=== PATIENT | female | born 1965 | race Caucasian/White ===

== ENCOUNTER → 2016-11-06 | Outpatient (CLI) | payer MEDICARE, MEDICAID ==
[~2016-11-06] MED LIST: ACET1TAB40 PO; BACTDS PO; CEPH-443 PO; CIPR500T4 PO; CITROMA PO; HYDR-3498 PO; HYDR-3612 PO; HYDR-906 PO; LACTINEX PO; ONDA4TAB35 PO; PANT40TA3 PO; PHEN-538 PO; ZOLP10TA5 PO
[2016-11-06 13:49] LABS: BASOPHILS % 0.2 % (0.0-2.0); EOSINOPHILS % 0.1 % (0.0-7.0); HEMATOCRIT 38.4 % (37.0-47.0); LYMPHOCYTES % 17.2 % (15.0-51.0); MEAN CORPUSCULAR HEMOGLOBIN 31.7 pg (29.0-33.0); MEAN CORPUSCULAR HGB CONC 33.9 g/dl (32.0-37.0); MEAN CORPUSCULAR VOLUME 93.5 fl (82.0-101.0); MEAN PLATELET VOLUME 8.1 fl (7.4-10.4); MONOCYTE # 0.7 10^3/ul (0.3-0.9); MONOCYTES % 12.4 % (0.0-11.0); NEUTROPHIL # 4.2 10^3/ul (1.6-7.5); NEUTROPHILS % 70.1 % (39.0-77.0); PLATELET COUNT 248 10^3/UL (140-440); RED CELL DISTRIBUTION WIDTH 13.9 % (11.5-14.5)
[2016-11-06 13:50] LABS: CONDITION 1
[2016-11-06 21:44] LABS: TRIIODOTHYRONINE 1.2 ng/ml (0.97-1.69)
[2016-11-06 22:34] LABS: THYROID STIMULATING HORMONE 0.957 MIU/L (0.465-4.680)
[2016-11-11 22:01] LABS: FREE TESTOSTERONE 0.4 pg/mL (0.1-6.4)
== END | disposition home or self-care (01) ==
LOC: LAB 10:21
PROVIDERS: ATTEND Dermatology
DX: L65.9 Nonscarring hair loss, unspecified (principal)
CPT/HCPCS: 82626; 84403; 84436; 84443; 84480; 85025

== ENCOUNTER 2016-12-18 20:13 | Emergency (ER) | payer MEDICARE, MEDICAID ==
[~2016-12-18] VITALS: Ht 152.4 cm; Wt 56.0 kg
[2016-12-18 20:26] VITALS: Ht 152.4 cm; Wt 56.0 kg
[2016-12-18] MEDS ORDERED: PIPER-TAZO 3.375 GM IV (PMX) 100 ML IVPB STA (21:50)
[2016-12-18] MEDS ORDERED: SOD CHLORIDE 0.9% 1,000 ML IV STA (21:50)
[2016-12-18] MEDS ORDERED: HYDROmorphONE 1 MG/ML SYG IV STA (21:50)
[2016-12-18] MEDS ORDERED: ONDANSETRON 4 MG INJ IV STA (21:50)
[2016-12-18 22:34] LABS: BASOPHILS % 0.3 % (0.0-2.0); EOSINOPHILS % 0.3 % (0.0-7.0); HEMATOCRIT 43.9 % (37.0-47.0); HEMOGLOBIN 14.8 g/dl (12.0-16.0); LYMPHOCYTES # 1.4 10^3/ul (0.8-2.9); LYMPHOCYTES % 14.7 % (15.0-51.0); MEAN CORPUSCULAR HEMOGLOBIN 30.7 pg (29.0-33.0); MEAN CORPUSCULAR HGB CONC 33.8 g/dl (32.0-37.0); MEAN CORPUSCULAR VOLUME 90.9 fl (82.0-101.0); MEAN PLATELET VOLUME 9.3 fl (7.4-10.4); MONOCYTES % 10.2 % (0.0-11.0); NEUTROPHIL # 7.3 10^3/ul (1.6-7.5); NEUTROPHILS % 74.5 % (39.0-77.0); PLATELET COUNT 267 10^3/UL (140-440); RED BLOOD COUNT 4.83 10^6/ul (4.20-5.40); RED CELL DISTRIBUTION WIDTH 12.9 % (11.5-14.5); UNCORRECTED WBC 9.9 10^3/ul (4.8-10.8); WHITE BLOOD COUNT 9.9 10^3/ul (4.8-10.8)
[2016-12-18 22:36] LABS: ADD UMIC NO; CONDITION 1; URINE BILIRUBIN (Dip) NEGATIVE (NEGATIVE); URINE BLOOD (Dip) NEGATIVE (NEGATIVE); URINE COLOR LT. YELLOW (YELLOW); URINE GLUCOSE (Dip) NEGATIVE (NEGATIVE); URINE KETONES (Dip) NEGATIVE (NEGATIVE); URINE LEUKOCYTE ESTERASE (Dip) NEGATIVE (NEGATIVE); URINE NITRITE (Dip) NEGATIVE (NEGATIVE); URINE TOTAL PROTEIN (Dip) NEGATIVE (NEGATIVE); URINE UROBILINOGEN (Dip) 0.2 E.U./dL (0.1-1.0)
[2016-12-18 22:44] LABS: ALBUMIN 4.5 g/dl (3.3-4.9)
[2016-12-18 22:45] LABS: POTASSIUM 3.7 mmol/L (3.5-5.1)
[2016-12-18 22:47] LABS: ALBUMIN/GLOBULIN RATIO 1.32; BILIRUBIN,INDIRECT 0.1 mg/dl (0-1.1); BILIRUBIN,TOTAL 0.1 mg/dl (0.2-1.3); CREATININE 0.52 mg/dl (0.44-1.00); TOTAL PROTEIN 7.9 g/dl (6.1-8.1)
[2016-12-18 22:48] LABS: CALCIUM 9.3 mg/dl (8.4-10.2)
--- NOTE | 2016-12-19 00:41 | RADRPT ---
PROCEDURE: CT abdomen and pelvis without contrast. CLINICAL INDICATION: Flank pain TECHNIQUE: CT scan of the abdomen and pelvis without contrast was performed. Sagittal and coronal reformatted images were obtained from the axial source images. CTDI = 8.62 mGy; DLP = 464.46 mGy-cm COMPARISON: CT 09/26/2016 FINDINGS: Visualized lower thorax: The lung bases are clear. There is no evidence for pleural effusion. Liver, gallbladder, pancreas and spleen: Borderline hepatomegaly of 19 cm is again noted with prese rved attenuation and contour. There is no evidence for a liver mass or ductal dilatation. The gall bladder is unremarkable. No common bile duct abnormality is demonstrated. The pancreas is unremark able. The spleen is normal in size. Adrenal glands and genitourinary system: The adrenal glands are normal bilaterally. The kidneys are normal and size, contour and attenuation with no evidence for masses, calculi or hydronephrosis. T he ureters are unremarkable. No urinary bladder abnormality is demonstrated. The uterus is unremar kable. An approximately 11 mm left ovarian/adnexal cyst is similar to the previous examination. Th ere is no right ovarian or adnexal abnormality. No free fluid is seen in the cul-de-sac. Gastrointestinal system: The stomach is normal in caliber with no abnormality of significance. The small bowel is normal in caliber with no ileus, obstruction or wall thickening. The appendix and s urrounding fat are within the limits of normal. The colon shows no evidence for wall thickening or acute abnormality. A moderate amount of fecal debris throughout the colon raises concern for consti pation. Peritoneum, retroperitoneum, lymph nodes and vessels: The abdominal aorta is normal in caliber. The re is no evidence for atherosclerotic calcification. The inferior vena cava is unremarkable. There is no evidence for adenopathy or mass. There is no ascites. Osseous structures and musculoskeletal findings: There is no fracture, lytic or blastic lesion. No muscular abnormality or soft tissue pathology is present. RPTAT:HJJR IMPRESSION: 1. No evidence of urinary tract calculi, hydronephrosis or finding to explain the patient's provide d history of flank pain. 2. Constipation pattern. 3. Small left ovarian/adnexal cyst not significantly changed from 09/26/2016. 4. Borderline hepatomegaly with preserved liver contour and attenuation. Wojciech Coe, Physician Date Time Electronically viewed and signed by Wojciech Coe, Physician on 12/19/2016 00:41 JR/
[2016-12-19] MEDS ORDERED: HYDR-902 PO (01:19)
[2016-12-19] MEDS ORDERED: METH-70 PO (01:19)
[2016-12-19] MEDS ORDERED: ONDA4TAB14 PO (01:19)
[2016-12-19] MEDS ORDERED: ONDANSETRON 4 MG INJ IV STA (01:20)
[2016-12-19] MEDS ORDERED: HYDROmorphONE 1 MG/ML SYG IV STA (01:20)
--- NOTE | 2016-12-19 01:24 | ERD ---
ER Documentation Chief Complaint Date/Time DATE: 12/19/16 TIME: 01:22 Chief Complaint Dysuria, UTI 2 weeks ago HPI This a 51-year-old female complains of some right flank pain and nausea vomiting today. She says she has had the flank pain for 2 weeks. The pain is described as sharp and worse with movement better with rest. The patient feels she has a UTI possibly a kidney infection. The patient states that she has had a history of antibiotic resistant UTI. Occasional dysuria but no frequency no headache no abdominal pain no diarrhea no blood in the urine. ROS All systems reviewed and are negative except as per history of present illness. Medications Home Meds Active Scripts Methocarbamol* (Robaxin*) 750 Mg Tablet, 750 MG PO TID, #20 TAB Prov:FRANCESCA URIAS DO 12/19/16 Hydrocodone/Acetaminophen ([place] 10-325 Tablet) 1 Each Tablet, 1 TAB PO Q6H Y for PAIN, #20 TAB Prov:FRANCESCA URIAS DO 12/19/16 Ondansetron (Ondansetron Odt) 4 Mg Tab.rapdis, 4 MG PO Q6H Y for NAUSEA AND/OR VOMITING, #10 TAB Prov:JUN URIASSTBURTS Nuvia DO 12/19/16 Sulfamethoxazole-Trimethoprim* (Bactrim* DS) 800-160 Mg Tab, 1 TAB PO BID for 5 Days, TAB Prov:KATHERIN DE LUNA PA-C 10/24/16 Hydrocodone/Acetaminophen ([place] 5-325 Tablet) 1 Each Tablet, 1 TAB PO Q6H Y for PAIN, #7 TAB Prov:ZANDER POLANCO PA-C 09/26/16 Ciprofloxacin Hcl* (Ciprofloxacin Hcl*) 500 Mg Tablet, 500 MG PO BID for 10 Days , TAB Prov:ZANDER POLANCO PA-C 09/26/16 Phenazopyridine Hcl* (Pyridium*) 200 Mg Tab, 200 MG PO TID Y for URINARY PAIN, # 6 TAB Prov:KUSH VITALE MD 08/12/16 Cephalexin* (Keflex*) 500 Mg Capsule, 500 MG PO QID for 7 Days, CAP Prov:KUSH VITALE MD 08/12/16 Magnesium Citrate* (Citroma*) 300 Ml Soln, 150 ML PO BID, #1 BOTTLE Prov:CHANTELLE VELÁSQUEZErica APRON CLEANER 06/22/16 Ondansetron Hcl* (Zofran* ODT) 4 mg -ODT Tab.disper, 4 MG PO Q8 Y for NAUSEA AND /OR VOMITING, #30 TAB Prov:ALIREZA SUTHERLAND APRON CLEANER 10/15/15 Hydrocodone Bit-Acetaminophen* ([place]*) 5-325 Mg Tab, 1 TAB PO Q6 Y for PAIN, # 20 TAB Prov:ALIREZA SUTHERLAND APRON CLE[employer]ER 10/15/15 Acetaminophen-Codeine* (Acetaminophen-Cod #3*) 300-30 Mg Tab, 1 TAB PO Q4H Y for PAIN, #20 TAB Prov:DESMOND GAYLE [employer]ON CLEANER 04/18/15 Ondansetron Hcl* (Zofran* ODT) 4 mg -ODT Tab.disper, 4 MG PO Q6 Y for NAUSEA AND /OR VOMITING, #5 TAB Prov:MILTON GARCIA 04/11/15 Reported Medications Lactobacillus Acidophilus* (Lactinex*) 1 Tab Chew, 1 TAB PO DAILY, TAB 07/26/14 Zolpidem Tartrate* (Zolpidem Tartrate*) 10 Mg Tablet, 10 MG PO HS for INSOMNIA, TAB 07/26/14 Pantoprazole* (Protonix*) 40 Mg Tablet.dr, 40 MG PO BID, TAB 07/26/14 Hydrocodone Bit-Acetaminophen* ([place]*) 10-325 Tablet, 1 TAB PO Q6 Y for PAIN, TAB 07/09/14 Allergies Allergies: Coded Allergies: clindamycin (Verified Allergy, Intermediate, 12/18/16) PMhx/Soc History of Surgery: Yes (right hip, right shoulder, coccyx) Anesthesia Reaction: No Hx Neurological Disorder: No Hx Respiratory Disorders: No Hx Cardiac Disorders: Yes (Hyperlipidemia ) Hx Psychiatric Problems: No Hx Miscellaneous Medical Probl: Yes (uti) Hx Alcohol Use: No Hx Substance Use: No Hx Tobacco Use: No Smoking Status: Never smoker FmHx Family History: No coronary disease Physical Exam Vitals Vital Signs Date Time Temp Pulse Resp B/P Pulse Ox O2 Delivery O2 Flow Rate FiO2 12/18/16 20:26 95 18 149/81 98 Physical Exam Const: Well-developed, well-nourished Head: Atraumatic, normocephalic Eyes: Normal Conjunctiva, PERRLA, EOMI, normal sclera, no nystagmus ENT: Normal External Ears, Nose and Mouth, moist mucus membranes. Neck: Full range of motion. No meningismus, no lymphadenopathy. Resp: Clear to auscultation bilaterally, no wheezing, rhonchi, rales Cardio: Regular rate and rhythm, no murmurs, S1 S2 present Abd: Soft, non tender x 4, non distended. Normal bowel sounds, no guarding or rebound, no pulsitile abdominal masses or bruits Skin: No petechiae or rashes, no ecchymosis , no maculopapular rash Back: No midline tenderness positive right flank tenderness mild to moderate Ext: No cyanosis, or edema, FROM x 4, normal inspection, neurovascularly intact x 4 Neur: Awake and alert, STR 5/5 x 4, sensation intact x 4, no focal findings, cerebellum intact Psych: Normal Mood and Affect Result Diagram: 12/18/16220712/18/162207 Results 24 hrs Laboratory Tests Test 12/18/16 22:08 Alanine Aminotransferase (ALT/SGPT) 17IU/L Albumin 4.5g/dl Albumin/Globulin Ratio 1.32 Alkaline Phosphatase 110IU/L Anion Gap 17 Aspartate Amino Transf (AST/SGOT) 25IU/L Basophils # 0.010^3/ul Basophils % 0.3% Blood Urea Nitrogen 7mg/dl Calcium Level 9.3mg/dl Carbon Dioxide Level 27mmol/L Chloride Level 102mmol/L Creatinine 0.52mg/dl Direct Bilirubin 0.00mg/dl Eosinophils # 0.010^3/ul Eosinophils % 0.3% Globulin 3.40g/dl Glucose Level 130mg/dl Hematocrit 43.9% Hemoglobin 14.8g/dl Indirect Bilirubin 0.1mg/dl Lymphocytes # 1.410^3/ul Lymphocytes % 14.7% Mean Corpuscular Hemoglobin 30.7pg Mean Corpuscular Hemoglobin Concent 33.8g/dl Mean Corpuscular Volume 90.9fl Mean Platelet Volume 9.3fl Monocytes # 1.010^3/ul Monocytes % 10.2% Neutrophils # 7.310^3/ul Neutrophils % 74.5% Nucleated Red Blood Cells # 0.010^3/ul Nucleated Red Blood Cells % 0.0/100WBC Platelet Count 52752^3/UL Potassium Level 3.7mmol/L Red Blood Count 4.8310^6/ul Red Cell Distribution Width 12.9% Sodium Level 142mmol/L Total Bilirubin 0.1mg/dl Total Protein 7.9g/dl Urine Bilirubin NEGATIVE Urine Clarity CLEAR Urine Color LT. YELLOW Urine Glucose NEGATIVE% Urine Hemoglobin NEGATIVE Urine Ketones NEGATIVE Urine Leukocyte Esterase NEGATIVE Urine Nitrite NEGATIVE Urine Specific Kirby 1.010 Urine Total Protein NEGATIVE Urine Urobilinogen 0.2 E.U./dL Urine pH 6.0 White Blood Count 9.910^3/ul Current Medications Medications (Trade) Dose Ordered Sig/Rahul Route PRN Reason Start Time Stop Time Status Last Admin Dose Admin Sodium Chloride (NS) 1,000 ml @ 1,000 mls/hr Q1H STAT IV 12/18/16 21:50 12/18/16 22:49 DC 12/18/16 22:37 Hydromorphone HCl (Dilaudid) 1 mg ONCE STAT IV 12/18/16 21:50 12/18/16 21:51 DC 12/18/16 22:37 Ondansetron HCl 4 mg 4 mg ONCE STAT IV 12/18/16 21:50 12/18/16 21:51 DC 12/18/16 22:37 Piperacillin Sod/ Tazobactam Sod (Zosyn 3.375gm/ 100 ml (Pmx)) 100 ml @ 200 mls/hr ONCE STAT IVPB 12/18/16 21:50 12/18/16 22:19 DC 12/18/16 23:00 Procedures/MDM PROCEDURE: CT abdomen and pelvis without contrast. CLINICAL INDICATION: Flank pain TECHNIQUE: CT scan of the abdomen and pelvis without contrast was performed. Sagittal and coronal reformatted images were obtained from the axial source images. CTDI = 8.62 mGy; DLP = 464.46 mGy-cm COMPARISON: CT 09/26/2016 FINDINGS: Visualized lower thorax: The lung bases are clear. There is no evidence for pleural effusion. Liver, gallbladder, pancreas and spleen: Borderline hepatomegaly of 19 cm is again noted with preserved attenuation and contour. There is no evidence for a liver mass or ductal dilatation. The gallbladder is unremarkable. No common bile duct abnormality is demonstrated. The pancreas is unremarkable. The spleen is normal in size. Adrenal glands and genitourinary system: The adrenal glands are normal bilaterally. The kidneys are normal and size, contour and attenuation with no evidence for masses, calculi or hydronephrosis. The ureters are unremarkable. No urinary bladder abnormality is demonstrated. The uterus is unremarkable. An approximately 11 mm left ovarian/adnexal cyst is similar to the previous examination. There is no right ovarian or adnexal abnormality. No free fluid is seen in the cul-de-sac. Gastrointestinal system: The stomach is normal in caliber with no abnormality of significance. The small bowel is normal in caliber with no ileus, obstruction or wall thickening. The appendix and surrounding fat are within the limits of normal. The colon shows no evidence for wall thickening or acute abnormality. A moderate amount of fecal debris throughout the colon raises concern for constipation. Peritoneum, retroperitoneum, lymph nodes and vessels: The abdominal aorta is normal in caliber. There is no evidence for atherosclerotic calcification. The inferior vena cava is unremarkable. There is no evidence for adenopathy or mass. There is no ascites. Osseous structures and musculoskeletal findings: There is no fracture, lytic or blastic lesion. No muscular abnormality or soft tissue pathology is present. RPTAT:HJJR IMPRESSION: 1. No evidence of urinary tract calculi, hydronephrosis or finding to explain the patient's provided history of flank pain. 2. Constipation pattern. 3. Small left ovarian/adnexal cyst not significantly changed from 09/26/2016. 4. Borderline hepatomegaly with preserved liver contour and attenuation. Physician Angelo Date Time Electronically viewed and signed by Physician Angelo on 12/19/2016 00:41 JR/ CC: FRANCESCA URIAS DO Patient has no UTI, noticed signs of any intra-abdominal pathology. Normal white blood count normal renal function. I feel her pain is musculoskeletal, she may have a viral illness with vomiting. She is feeling much better will discharge home Departure Diagnosis: Primary Impression: Vomiting Vomiting type: unspecified Vomiting Intractability: non-intractable Nausea presence: with nausea Qualified Code: R11.2 - Non-intractable vomiting with nausea, unspecified vomiting type Additional Impression: Flank pain Condition: Stable Patient Instructions: Flank Pain, Uncertain Cause, Vomiting (6Y-Adult) Referrals: ELICIA SHERIDAN MD (PCP) FRANCESCA URIAS DO Dec 19, 2016 01:24
[2016-12-19 02:19] VITALS: BP 97/54; PULSE 77; RESP 16; TEMP 98.2
== END 2016-12-19 02:19 | disposition home or self-care (01) ==
LOC: FTE 20:13
DX: R11.2 Nausea with vomiting, unspecified (principal); R10.9 Unspecified abdominal pain
CPT/HCPCS: 36415; 74176; 80053; 81003; 85025; 87040; 87086; 96374; 96375; 96376; 99285; J1170; J2405; J2543; J7030

== ENCOUNTER 2016-12-26 12:49 | Emergency (ER) | payer MEDICARE, MEDICAID ==
[~2016-12-26] VITALS: Ht 157.5 cm; Wt 55.0 kg
[~2016-12-26 12:49] MED LIST changes: +HYDR-902 PO; +METH-70 PO; +ONDA4TAB14 PO
[2016-12-26 12:59] VITALS: Ht 157.5 cm; Wt 55.0 kg
--- NOTE | 2016-12-26 14:33 | ERD ---
ER Documentation Chief Complaint Date/Time DATE: 12/26/16 TIME: 14:29 Chief Complaint CONSTIPATION X 9 DAYS , ABD PAIN WITH NAUSEA HPI This 51-year-old female who presents to the emergency department today complaining of constipation for the past 9 days. Patient states she was here a week ago for flank pain and was told she was constipated that time. Patient states she has tried B's umbilical and an enema but the enema did not go in all the way. States she has some nausea and has been taking Zofran. States that she has been taking Percocet since 2011 and recently started on morphine for back pain and back fusion. Denies any fever or chills. ROS All systems reviewed and are negative except as per history of present illness. Medications Home Meds Active Scripts Docusate Sodium* (Colace*) 100 Mg Capsule, 100 MG PO DAILY, #30 CAP Prov:PATSY QUIÑONES PA-C 12/26/16 Magnesium Citrate* (Magnesium Citrate*) 296 Ml Solution, 296 ML PO ONCE, #1 BOTTLE Prov:PATSY QUIÑONES PA-C 12/26/16 Polyethylene Glycol* (Miralax*) 17 Gm Powd.pack, 17 GM PO DAILY, #15 Prov:PATSY QUIÑONES PA-C 12/26/16 Methocarbamol* (Robaxin*) 750 Mg Tablet, 750 MG PO TID, #20 TAB Prov:FRANCESCA URIAS DO 12/19/16 Hydrocodone/Acetaminophen ([place] 10-325 Tablet) 1 Each Tablet, 1 TAB PO Q6H Y for PAIN, #20 TAB Prov:FRANCESCA URIAS DO 12/19/16 Ondansetron (Ondansetron Odt) 4 Mg Tab.rapdis, 4 MG PO Q6H Y for NAUSEA AND/OR VOMITING, #10 TAB Prov:FRANCESCA URIAS DO 12/19/16 Sulfamethoxazole-Trimethoprim* (Bactrim* DS) 800-160 Mg Tab, 1 TAB PO BID for 5 Days, TAB Prov:KATHERIN DE LUNA PA-C 10/24/16 Hydrocodone/Acetaminophen ([place] 5-325 Tablet) 1 Each Tablet, 1 TAB PO Q6H Y for PAIN, #7 TAB Prov:ZANDER POLANCO PA-C 09/26/16 Ciprofloxacin Hcl* (Ciprofloxacin Hcl*) 500 Mg Tablet, 500 MG PO BID for 10 Days , TAB Prov:ZANDER POLANCO PA-C 09/26/16 Phenazopyridine Hcl* (Pyridium*) 200 Mg Tab, 200 MG PO TID Y for URINARY PAIN, # 6 TAB Prov:KUSH VITALE MD 08/12/16 Cephalexin* (Keflex*) 500 Mg Capsule, 500 MG PO QID for 7 Days, CAP Prov:KUSH VITALE MD 08/12/16 Magnesium Citrate* (Citroma*) 300 Ml Soln, 150 ML PO BID, #1 BOTTLE Prov:CHANTELLE VELÁSQUEZ NP 06/22/16 Ondansetron Hcl* (Zofran* ODT) 4 mg -ODT Tab.disper, 4 MG PO Q8 Y for NAUSEA AND /OR VOMITING, #30 TAB Prov:ALIREZA SUTHERLAND NP 10/15/15 Hydrocodone Bit-Acetaminophen* ([place]*) 5-325 Mg Tab, 1 TAB PO Q6 Y for PAIN, # 20 TAB Prov:ALIREZA SUTHERLAND NP 10/15/15 Acetaminophen-Codeine* (Acetaminophen-Cod #3*) 300-30 Mg Tab, 1 TAB PO Q4H Y for PAIN, #20 TAB Prov:DESMOND GAYLE NP 04/18/15 Ondansetron Hcl* (Zofran* ODT) 4 mg -ODT Tab.disper, 4 MG PO Q6 Y for NAUSEA AND /OR VOMITING, #5 TAB Prov:MILTON GARCIA 04/11/15 Reported Medications Lactobacillus Acidophilus* (Lactinex*) 1 Tab Chew, 1 TAB PO DAILY, TAB 07/26/14 Zolpidem Tartrate* (Zolpidem Tartrate*) 10 Mg Tablet, 10 MG PO HS for INSOMNIA, TAB 07/26/14 Pantoprazole* (Protonix*) 40 Mg Tablet.dr, 40 MG PO BID, TAB 07/26/14 Hydrocodone Bit-Acetaminophen* ([place]*) 10-325 Tablet, 1 TAB PO Q6 Y for PAIN, TAB 07/09/14 Allergies Allergies: Coded Allergies: clindamycin (Verified Allergy, Intermediate, 12/18/16) PMhx/Soc History of Surgery: Yes (right hip, right shoulder, coccyx) Anesthesia Reaction: No Hx Neurological Disorder: No Hx Respiratory Disorders: No Hx Cardiac Disorders: Yes (Hyperlipidemia ) Hx Psychiatric Problems: No Hx Miscellaneous Medical Probl: Yes (uti) Hx Alcohol Use: No Hx Substance Use: No Hx Tobacco Use: No Physical Exam Vitals Vital Signs Date Time Temp Pulse Resp B/P Pulse Ox O2 Delivery O2 Flow Rate FiO2 12/26/16 12:59 98.1 92 18 134/74 100 Physical Exam Const: NAD Head: Atraumatic Eyes: Normal Conjunctiva ENT: Normal External Ears, Nose and Mouth. Neck: Full range of motion..~ No meningismus. Resp: Clear to auscultation bilaterally Cardio: Regular rate and rhythm, no murmurs Abd: Soft, mild suprapubic tenderness non distended. Normal bowel sounds. No right lower quadrant pain. No tenderness to McBurney's. No left lower quadrant pain. Skin: No petechiae or rashes Neur: Awake and alert Psych: Normal Mood and Affect Procedures/MDM This a 51-year-old female who presents to the emergency department today complaining of constipation for the past 9 days. 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 Patient has been taking Percocet since 2011 and is currently started taking morphine 1 week ago. Patient was here for a flank pain on December 18, 2016, approximately 8 days ago and had a CT scan at that time. Her CT was essentially negative with the exception of a constipation pattern I do not feel the patient requires another CT at this time. I discussed the patient with Dr. Vitale, and the agreement was made to order a KUB to rule out obstruction. KUB shows large amount of formed stool throughout the colon suggesting constipation. There are no dilated loops of small bowel. There is no evidence of obstruction. His symptoms at this time is consistent with constipation likely secondary to her narcotic use. Patient will be given a prescription for MiraLAX, Colace and mag citrate. At this time the patient is stable for discharge and outpatient management. Patient should follow up with their PCP in the next 1-2 days. They may return to the emergency department sooner for any persistent or worsening of symptoms. Patient understood and agreed with the plan. Discussed the patient with and he is in agreement with the plan. Departure Diagnosis: Primary Impression: Constipation Constipation type: drug induced constipation Qualified Code: K59.03 - Drug- induced constipation Condition: Fair PATSY QUIÑONES PA-C Dec 26, 2016 14:33
--- NOTE | 2016-12-26 15:38 | RADRPT ---
PROCEDURE: XR Abdomen 1 View. CLINICAL INDICATION: Abdominal pain, constipation TECHNIQUE: AP abdomen x-ray. COMPARISON: None. FINDINGS: Large amount of formed stool is identified throughout the colon. No dilated loops of small bowel ar e observed. No organomegaly is identified. A few phleboliths are noted in the pelvis. The osseous s tructures are intact. IMPRESSION: Large amount of formed stool throughout the colon suggesting constipation. If further characterization of the abdomen is needed CT should be considered. RPTAT: AA .José Antonio Lerma MD, MD Date Time Electronically viewed and signed by .José Antonio Lerma MD, on 12/26/2016 15:38 .P/
[2016-12-26] MEDS ORDERED: POLY17PO6 PO (15:43)
[2016-12-26] MEDS ORDERED: MAGN296S40 PO (15:44)
[2016-12-26] MEDS ORDERED: DOCU-144 PO (15:49)
[2016-12-26 16:07] VITALS: BP 119/65; PULSE 77; RESP 16; TEMP 98.2
== END 2016-12-26 16:08 | disposition home or self-care (01) ==
LOC: FTE 12:49
DX: K59.00 Constipation, unspecified (principal)
CPT/HCPCS: 74000

== ENCOUNTER 2017-02-17 12:18 | Emergency (ER) | payer MEDICARE, BC, MEDICAID ==
[~2017-02-17] VITALS: Ht 160 cm; Wt 56.5 kg
[~2017-02-17 12:18] MED LIST changes: +DOCU-144 PO; +MAGN296S40 PO; +POLY17PO6 PO
[2017-02-17 12:29] VITALS: Ht 160 cm; Wt 56.5 kg
--- NOTE | 2017-02-17 12:50 | ERA ---
ER Documentation Chief Complaint Date/Time DATE: 02/17/17 TIME: 12:48 Chief Complaint PRODDUCTIVE COUGH X 2 DAYS,SOB HPI Patient is a 51-year-old female presenting for 2 days of fever and what cough. Patient denies any significant mucus production. Patient has taken Tylenol and ibuprofen on and off to control the fever with moderate relief. Patient states her cough is more noticeable at night and keeps her up. Patient also reports general malaise. Patient denies any headache changes in vision, changes in hearing, dysgeusia, dysarthria, difficulty breathing, abdominal pain, nausea, difficulty urinating, hematuria, dysuria, or constipation/diarrhea. Patient denies medical conditions. No known sick contacts. ROS All systems reviewed and are negative except as per history of present illness. Medications Home Meds Active Scripts Docusate Sodium* (Colace*) 100 Mg Capsule, 100 MG PO DAILY, #30 CAP Prov:PATSY QUIÑONES PA-C 12/26/16 Magnesium Citrate* (Magnesium Citrate*) 296 Ml Solution, 296 ML PO ONCE, #1 BOTTLE Prov:PATSY QUIÑONES PA-C 12/26/16 Polyethylene Glycol* (Miralax*) 17 Gm Powd.pack, 17 GM PO DAILY, #15 Prov:PATSY QUIÑONES PA-C 12/26/16 Methocarbamol* (Robaxin*) 750 Mg Tablet, 750 MG PO TID, #20 TAB Prov:FRANCESCA URIAS DO 12/19/16 Hydrocodone/Acetaminophen ([place] 10-325 Tablet) 1 Each Tablet, 1 TAB PO Q6H Y for PAIN, #20 TAB Prov:FRANCESCA URIAS DO 12/19/16 Ondansetron (Ondansetron Odt) 4 Mg Tab.rapdis, 4 MG PO Q6H Y for NAUSEA AND/OR VOMITING, #10 TAB Prov:FRANCESCA URIAS DO 12/19/16 Sulfamethoxazole-Trimethoprim* (Bactrim* DS) 800-160 Mg Tab, 1 TAB PO BID for 5 Days, TAB Prov:KATHERIN DE LUNA PA-C 10/24/16 Hydrocodone/Acetaminophen ([place] 5-325 Tablet) 1 Each Tablet, 1 TAB PO Q6H Y for PAIN, #7 TAB Prov:ZANDER POLANCO PA-C 09/26/16 Ciprofloxacin Hcl* (Ciprofloxacin Hcl*) 500 Mg Tablet, 500 MG PO BID for 10 Days , TAB Prov:ZANDER POLANCO PA-C 09/26/16 Phenazopyridine Hcl* (Pyridium*) 200 Mg Tab, 200 MG PO TID Y for URINARY PAIN, # 6 TAB Prov:KUSH VITALE MD 08/12/16 Cephalexin* (Keflex*) 500 Mg Capsule, 500 MG PO QID for 7 Days, CAP Prov:KUSH VITALE MD 08/12/16 Magnesium Citrate* (Citroma*) 300 Ml Soln, 150 ML PO BID, #1 BOTTLE Prov:CHANTELLE VELÁSQUEZ NP 06/22/16 Ondansetron Hcl* (Zofran* ODT) 4 mg -ODT Tab.disper, 4 MG PO Q8 Y for NAUSEA AND /OR VOMITING, #30 TAB Prov:ALIREZA SUTHERLAND NP 10/15/15 Hydrocodone Bit-Acetaminophen* ([place]*) 5-325 Mg Tab, 1 TAB PO Q6 Y for PAIN, # 20 TAB Prov:ALIREZA SUTHERLAND NP 10/15/15 Acetaminophen-Codeine* (Acetaminophen-Cod #3*) 300-30 Mg Tab, 1 TAB PO Q4H Y for PAIN, #20 TAB Prov:DESMOND GAYLE NP 04/18/15 Ondansetron Hcl* (Zofran* ODT) 4 mg -ODT Tab.disper, 4 MG PO Q6 Y for NAUSEA AND /OR VOMITING, #5 TAB Prov:MILTON GARCIA 04/11/15 Reported Medications Lactobacillus Acidophilus* (Lactinex*) 1 Tab Chew, 1 TAB PO DAILY, TAB 07/26/14 Zolpidem Tartrate* (Zolpidem Tartrate*) 10 Mg Tablet, 10 MG PO HS for INSOMNIA, TAB 07/26/14 Pantoprazole* (Protonix*) 40 Mg Tablet.dr, 40 MG PO BID, TAB 07/26/14 Hydrocodone Bit-Acetaminophen* ([place]*) 10-325 Tablet, 1 TAB PO Q6 Y for PAIN, TAB 07/09/14 Allergies Allergies: Coded Allergies: clindamycin (Verified Allergy, Intermediate, 12/18/16) PMhx/Soc History of Surgery: Yes (right hip, right shoulder, coccyx) Anesthesia Reaction: No Hx Neurological Disorder: No Hx Respiratory Disorders: No Hx Cardiac Disorders: Yes (Hyperlipidemia ) Hx Psychiatric Problems: No Hx Miscellaneous Medical Probl: Yes (uti) Hx Alcohol Use: No Hx Substance Use: No Hx Tobacco Use: No Smoking Status: Never smoker Physical Exam Vitals Vital Signs Date Time Temp Pulse Resp B/P Pulse Ox O2 Delivery O2 Flow Rate FiO2 02/17/17 12:29 98.1 89 18 127/85 98 Physical Exam Const: Healthy appearing 51-year-old female in no acute distress Head: Atraumatic Eyes: Normal Conjunctiva ENT: Normal External Ears, Nose and Mouth. Neck: Full range of motion..~ No meningismus. Resp: Clear to auscultation bilaterally. Rales and rhonchi heard bilaterally without wheezing. More predominate in the mid lung dominguez. Dullness to percussion in the Cardio: Regular rate and rhythm, no murmurs Abd: Soft, non tender, non distended. Normal bowel sounds no McBurney's point tenderness. Skin: No petechiae or rashes Back: No midline or flank tenderness Ext: No cyanosis, or edema Neur: Awake and alert Psych: Normal Mood and Affect Departure Condition: Stable Additional Instructions: Follow up with your PCP within the next 1-3 days for a more thorough evaluation and a possible referral to a specialist. Return the the emergency department immediately if symptoms worsen or change. If you have any questions regarding medications, ask your pharmacist or us before you leave. If any adverse reactions occur while taking your medications, discontinue the treatment and return to the emergency department immediately. Take your medications as directed, and complete the entire course of treatment. DELMIS JOSEPH PA-C Feb 17, 2017 12:50
--- NOTE | 2017-02-17 13:48 | RADRPT ---
PROCEDURE: XR Chest. CLINICAL INDICATION: Cough. TECHNIQUE: PA and lateral chest x-ray. COMPARISON: 07/05/2016 FINDINGS: The lungs are clear. No focal opacification is seen. The cardiomediastinal silhouette is unremarka ble. There is no pneumothorax or pleural effusion. The osseous structures are unremarkable. IMPRESSION: No acute cardiopulmonary disease . RPTAT: QQ .Elias Espinosa MD, MD Date Time Electronically viewed and signed by .Elias Espinosa MD, on 02/17/2017 13:47 .A/
[2017-02-17] MEDS ORDERED: BENZ100C70 PO (13:58)
== END 2017-02-17 14:06 | disposition home or self-care (01) ==
LOC: FTE 12:18
DX: R05 Cough (principal); R50.9 Fever, unspecified
CPT/HCPCS: 71020

== ENCOUNTER 2017-05-19 12:40 | Emergency (ER) | payer MEDICARE, BC, MEDICAID ==
[~2017-05-19] VITALS: Ht 152.4 cm; Wt 52.5 kg
[~2017-05-19 12:40] MED LIST changes: +BENZ100C70 PO; -METH-70 PO; +METH750T93 PO
[2017-05-19 12:48] VITALS: Ht 152.4 cm; Wt 52.5 kg
[2017-05-19] MEDS ORDERED: ONDANSETRON 4 MG INJ IV STA (13:20)
[2017-05-19] MEDS ORDERED: FAMOTIDINE 20 MG INJ IV STA (13:20)
[2017-05-19] MEDS ORDERED: SOD CHLORIDE 0.9% 1,000 ML IV STA (13:20)
[2017-05-19] MEDS ORDERED: LIDOCAINE/MYLANTA 40 ML BTL PO ONE (13:30)
[2017-05-19 13:49] LABS: ADD SCAN DIFF NO
[2017-05-19 13:52] LABS: BASOPHILS % 0.1 % (0.0-2.0); EOSINOPHILS # 0.1 10^3/ul (0.0-0.5); EOSINOPHILS % 0.7 % (0.0-7.0); HEMATOCRIT 45.9 % (37.0-47.0); HEMOGLOBIN 15.8 g/dl (12.0-16.0); LYMPHOCYTES # 1.4 10^3/ul (0.8-2.9); LYMPHOCYTES % 19.3 % (15.0-51.0); MEAN CORPUSCULAR HGB CONC 34.4 g/dl (32.0-37.0); MEAN CORPUSCULAR VOLUME 87.3 fl (82.0-101.0); MEAN PLATELET VOLUME 11.1 fl (7.4-10.4); MONOCYTE # 0.9 10^3/ul (0.3-0.9); MONOCYTES % 13.2 % (0.0-11.0); NEUTROPHIL # 4.7 10^3/ul (1.6-7.5); NEUTROPHILS % 66.3 % (39.0-77.0); PLATELET COUNT 262 10^3/UL (140-415); RED BLOOD COUNT 5.26 10^6/ul (4.20-5.40)
[2017-05-19 14:07] LABS: ADD UMIC NO; UR ASCORBIC ACID NEGATIVE (NEGATIVE); UR BACTERIA FEW /HPF (NONE SEEN); UR BILIRUBIN (Dip) NEGATIVE (NEGATIVE); UR BLOOD (Dip) NEGATIVE (NEGATIVE); UR CLARITY SLIGHTLY CLOUDY (CLEAR); UR COLOR YELLOW (YELLOW); UR GLUCOSE (Dip) NEGATIVE (NEGATIVE); UR KETONES (Dip) 2+ mg/dL (NEGATIVE); UR LEUKOCYTE ESTERASE (Dip) NEGATIVE Leu/ul (NEGATIVE); UR MUCUS FEW /HPF (NONE SEEN); UR NITRITE (Dip) NEGATIVE (NEGATIVE); UR RBC 1 /HPF (0-5); UR SPECIFIC GRAVITY (Dip) 1.013 (1.003-1.030); UR SQUAMOUS EPITHELIAL CELL FEW /HPF (FEW); UR TOTAL PROTEIN (Dip) NEGATIVE (NEGATIVE); UR UROBILINOGEN (Dip) NEGATIVE (NEGATIVE)
[2017-05-19 14:09] LABS: ALBUMIN 4.7 g/dl (3.3-4.9); ALBUMIN/GLOBULIN RATIO 1.27; BILIRUBIN,INDIRECT 0.4 mg/dl (0-1.1); BILIRUBIN,TOTAL 0.4 mg/dl (0.2-1.3); CREATININE 0.58 mg/dl (0.44-1.00); TOTAL PROTEIN 8.4 g/dl (6.1-8.1)
--- NOTE | 2017-05-19 14:42 | RADRPT ---
PROCEDURE: US Abdomen (Right upper quadrant) CLINICAL INDICATION: Abdominal pain. TECHNIQUE: Multiple real-time longitudinal and transverse images were acquired of the patient's ri t upper quadrant utilizing a curved array transducer. COMPARISON: CT, 12/19/2016. FINDINGS: Liver is normal in size and echogenicity. No focal liver mass. Portal vein demonstrates hepatopetal flow. Gallbladder is normal. There are no gallstones. There is no gallbladder wall thickening or pericho lecystic fluid. No intra- or extrahepatic biliary dilation. Pancreas is partially visualized and grossly unremarkable. Right kidney demonstrates no hydronephrosis or nephrolithiasis. No ascites. Proximal aorta and IVC are unremarkable. MEASUREMENTS: Liver: 11.5 cm Common Duct: 0.3 cm Right Kidney: 10.2 cm IMPRESSION: 1. No sonographic evidence of an acute or significant abnormality in the right upper quadrant of th e abdomen. RPTAT: EE .Judson Rodrigues MD, MD Date Time Electronically viewed and signed by .Judson Rodrigues MD, on 05/19/2017 14:47 .C/
--- NOTE | 2017-05-19 15:38 | ERD ---
ER Documentation Chief Complaint Date/Time DATE: 05/19/17 TIME: 15:36 Chief Complaint diarrhea since thursday HPI 51-year-old female patient with a past medical history of multiple surgeries for her right shoulder, right hip, coccyx in the last several years presents the ED with chronic pain and was taking fentanyl and Percocet complains of nonmucoid nonbloody diarrhea. Reports that she stopped it cold turkey 5 days ago and her chronic pain specialist, Dr. Enriquez gave her Nucynta for her pain since that has worked for her in the past. Reports that she has been taking fentanyl and Percocet for the last 8 months. Denies any vomiting however states that she is nauseous. States that she has right upper and left upper quadrant abdominal pain. Denies any fever, chills, chest pain, shortness of breath, wheezing. ROS All systems reviewed and are negative except as per history of present illness. Medications Home Meds Active Scripts Benzonatate* (Tessalon Perle*) 100 Mg Capsule, 100 MG PO Q8H Y for COUGH, #30 CAP Prov:DELMIS JOSEPH PA-C 02/17/17 Docusate Sodium* (Colace*) 100 Mg Capsule, 100 MG PO DAILY, #30 CAP Prov:PATSY QUIÑONES PA-C 12/26/16 Magnesium Citrate* (Magnesium Citrate*) 296 Ml Solution, 296 ML PO ONCE, #1 BOTTLE Prov:PATSY QUIÑONES PA-C 12/26/16 Polyethylene Glycol* (Miralax*) 17 Gm Powd.pack, 17 GM PO DAILY, #15 Prov:PATSY QUIÑONES PA-C 12/26/16 Methocarbamol* (Robaxin*) 750 Mg Tablet, 750 MG PO TID, #20 TAB Prov:FRANCESCA URIAS DO 12/19/16 Hydrocodone/Acetaminophen ([place] 10-325 Tablet) 1 Each Tablet, 1 TAB PO Q6H Y for PAIN, #20 TAB Prov:FRANCESCA URIAS DO 12/19/16 Ondansetron (Ondansetron Odt) 4 Mg Tab.rapdis, 4 MG PO Q6H Y for NAUSEA AND/OR VOMITING, #10 TAB Prov:FRANCESCA URIAS DO 12/19/16 Sulfamethoxazole-Trimethoprim* (Bactrim* DS) 800-160 Mg Tab, 1 TAB PO BID for 5 Days, TAB Prov:KATHERIN DE LUNA PA-C 10/24/16 Hydrocodone/Acetaminophen ([place] 5-325 Tablet) 1 Each Tablet, 1 TAB PO Q6H Y for PAIN, #7 TAB Prov:ZANDER POLANCO PA-C 09/26/16 Ciprofloxacin Hcl* (Ciprofloxacin Hcl*) 500 Mg Tablet, 500 MG PO BID for 10 Days , TAB Prov:ZANDER POLANCO PA-C 09/26/16 Phenazopyridine Hcl* (Pyridium*) 200 Mg Tab, 200 MG PO TID Y for URINARY PAIN, # 6 TAB Prov:KUSH VITALE MD 08/12/16 Cephalexin* (Keflex*) 500 Mg Capsule, 500 MG PO QID for 7 Days, CAP Prov:KUSH VITALE MD 08/12/16 Magnesium Citrate* (Citroma*) 300 Ml Soln, 150 ML PO BID, #1 BOTTLE Prov:CHANTELLE VELÁSQUEZ NP 06/22/16 Ondansetron Hcl* (Zofran* ODT) 4 mg -ODT Tab.disper, 4 MG PO Q8 Y for NAUSEA AND /OR VOMITING, #30 TAB Prov:ALIREZA SUTHERLAND NP 10/15/15 Hydrocodone Bit-Acetaminophen* ([place]*) 5-325 Mg Tab, 1 TAB PO Q6 Y for PAIN, # 20 TAB Prov:ALIREZA SUTHERLAND NP 10/15/15 Acetaminophen-Codeine* (Acetaminophen-Cod #3*) 300-30 Mg Tab, 1 TAB PO Q4H Y for PAIN, #20 TAB Prov:DESMOND GAYLE NP 04/18/15 Ondansetron Hcl* (Zofran* ODT) 4 mg -ODT Tab.disper, 4 MG PO Q6 Y for NAUSEA AND /OR VOMITING, #5 TAB Prov:MILTON GARCIA 04/11/15 Reported Medications Lactobacillus Acidophilus* (Lactinex*) 1 Tab Chew, 1 TAB PO DAILY, TAB 07/26/14 Zolpidem Tartrate* (Zolpidem Tartrate*) 10 Mg Tablet, 10 MG PO HS for INSOMNIA, TAB 07/26/14 Pantoprazole* (Protonix*) 40 Mg Tablet.dr, 40 MG PO BID, TAB 07/26/14 Hydrocodone Bit-Acetaminophen* ([place]*) 10-325 Tablet, 1 TAB PO Q6 Y for PAIN, TAB 07/09/14 Allergies Allergies: Coded Allergies: clindamycin (Verified Allergy, Intermediate, 05/19/17) PMhx/Soc History of Surgery: Yes (right hip, right shoulder, coccyx) Anesthesia Reaction: No Hx Neurological Disorder: No Hx Respiratory Disorders: No Hx Cardiac Disorders: Yes (Hyperlipidemia ) Hx Psychiatric Problems: No Hx Miscellaneous Medical Probl: Yes (uti) Hx Alcohol Use: No Hx Substance Use: No Hx Tobacco Use: No Smoking Status: Never smoker Physical Exam Vitals Vital Signs Date Time Temp Pulse Resp B/P Pulse Ox O2 Delivery O2 Flow Rate FiO2 05/19/17 12:48 98.1 100 18 98/62 99 Physical Exam Const: Fcm-fiz-dlykjhgyw, well-nourished. In no acute distress. Head: Atraumatic, normocephalic Eyes: Normal Conjunctiva without injection. No purulent discharge. ENT: Normal external ear, nose. Moist oropharynx without tonsillar exudates. Non -erythematous pharynx. Uvula midline. No drooling. No trismus. Neck: No cervical midline tenderness. Full range of motion. No meningismus. No cervical lymphadenopathy. No JVD. Resp: Clear to auscultation bilaterally. No wheezing, rhonchi, rales, or crackles. No accessory muscle use. No retractions. Cardio: Regular rate and rhythm. No murmurs, rubs or gallops. Abd: Soft, right and left upper quadrant tenderness, non distended. Normal bowel sounds. No palpable masses. No rebound tenderness. No guarding. Negative McBurney's point. Negative psoas sign. Negative obturator sign. Skin: No petechiae or rashes Back: No midline tenderness. No CVA tenderness. Ext: No cyanosis, or edema. Neur: Awake and alert. Normal gait. Normal coordination. Psych: Normal Mood and Affect Results 24 hrs Laboratory Tests Test 05/19/17 13:30 White Blood Count 7.010^3/ul Red Blood Count 5.2610^6/ul Hemoglobin 15.8g/dl Hematocrit 45.9% Mean Corpuscular Volume 87.3fl Mean Corpuscular Hemoglobin 30.0pg Mean Corpuscular Hemoglobin Concent 34.4g/dl Red Cell Distribution Width 12.0% Platelet Count 81411^3/UL Mean Platelet Volume 11.1fl Neutrophils % 66.3% Lymphocytes % 19.3% Monocytes % 13.2% Eosinophils % 0.7% Basophils % 0.1% Nucleated Red Blood Cells % 0.0/100WBC Neutrophils # 4.710^3/ul Lymphocytes # 1.410^3/ul Monocytes # 0.910^3/ul Eosinophils # 0.110^3/ul Basophils # 0.010^3/ul Nucleated Red Blood Cells # 0.010^3/ul Urine Color YELLOW Urine Clarity SLIGHTLY CLOUDY Urine pH 6.0 Urine Specific Ava 1.013 Urine Ketones 2+mg/dL Urine Nitrite NEGATIVEmg/dL Urine Bilirubin NEGATIVEmg/dL Urine Urobilinogen NEGATIVEmg/dL Urine Leukocyte Esterase NEGATIVELeu/ul Urine Microscopic RBC 1/HPF Urine Microscopic WBC 2/HPF Urine Squamous Epithelial Cells FEW/HPF Urine Bacteria FEW/HPF Urine Mucus FEW/HPF Urine Hemoglobin NEGATIVEmg/dL Urine Glucose NEGATIVEmg/dL Urine Total Protein NEGATIVEmg/dl Sodium Level 141mmol/L Potassium Level 4.0mmol/L Chloride Level 98mmol/L Carbon Dioxide Level 27mmol/L Anion Gap 20 Blood Urea Nitrogen 7mg/dl Creatinine 0.58mg/dl Glucose Level 87mg/dl Calcium Level 10.0mg/dl Total Bilirubin 0.4mg/dl Direct Bilirubin 0.00mg/dl Indirect Bilirubin 0.4mg/dl Aspartate Amino Transf (AST/SGOT) 23IU/L Alanine Aminotransferase (ALT/SGPT) 26IU/L Alkaline Phosphatase 74IU/L Total Protein 8.4g/dl Albumin 4.7g/dl Globulin 3.70g/dl Albumin/Globulin Ratio 1.27 Lipase 204U/L Current Medications Medications (Trade) Dose Ordered Sig/Rahul Route PRN Reason Start Time Stop Time Status Last Admin Dose Admin Sodium Chloride (NS) 1,000 ml @ 1,000 mls/hr Q1H STAT IV 05/19/17 13:20 05/19/17 14:19 DC 05/19/17 13:50 Ondansetron HCl (Zofran Inj) 4 mg ONCE STAT IV 05/19/17 13:20 05/19/17 13:23 DC 05/19/17 13:42 Famotidine (Pepcid Iv) 20 mg ONCE STAT IV 05/19/17 13:20 05/19/17 13:23 DC 05/19/17 13:43 Miscellaneous Medication (Gi Cocktail (2)) 40 ml ONCE ONCE PO 05/19/17 13:30 05/19/17 13:31 DC 05/19/17 13:42 Procedures/MDM 51-year-old female patient with past medical history of chronic pain presents to the ED complaining of diarrhea. Patient is afebrile and nontoxic-appearing. Patient has normal vital signs. Patient was further worked up with CBC, CMP, lipase, UA, urine . Patient's pain and symptoms have improved after treatment with 1 L normal saline. CBC: No leukocytosis. No e/o of systemic infection. No e/o anemia. CMP: No e/o severe acidosis, alkalosis, renal failure, diabetic ketoacidosis, liver disease Lipase within normal limits. Urine: No leukocyte esterase, no nitrites, no hematuria. Urine : Negative EKG reviewed and interpreted by Dr. Burkett Rate/Rhythm: [85 bpm, Normal Sinus Rhythm] No ectopy, no ST elevations, normal axis. QRS, ST, T-waves: [No changes consistent w/ acute ischemia] Impression: [No evidence of ischemia or arrhythmia] Low suspicion for acute myocardial infarction, pneumothorax, pneumonia, cardiac tamponade, pulmonary embolism, AAA, aortic dissection, Boerhaave's syndrome, cardiac dysrhythmias,meningitis, intracranial bleed, seizure, stroke, TIA or other emergent conditions. PROCEDURE: US Abdomen (Right upper quadrant) CLINICAL INDICATION: Abdominal pain. TECHNIQUE: Multiple real-time longitudinal and transverse images were acquired of the patient's right upper quadrant utilizing a curved array transducer. COMPARISON: CT, 12/19/2016. FINDINGS: Liver is normal in size and echogenicity. No focal liver mass. Portal vein demonstrates hepatopetal flow. Gallbladder is normal. There are no gallstones. There is no gallbladder wall thickening or pericholecystic fluid. No intra- or extrahepatic biliary dilation. Pancreas is partially visualized and grossly unremarkable. Right kidney demonstrates no hydronephrosis or nephrolithiasis. No ascites. Proximal aorta and IVC are unremarkable. MEASUREMENTS: Liver: 11.5 cm Common Duct: 0.3 cm Right Kidney: 10.2 cm IMPRESSION: 1. No sonographic evidence of an acute or significant abnormality in the right upper quadrant of the abdomen. Diarrhea could likely be secondary to opioid withdrawal. Patient is taking Nucynta, new opioid that Dr. Enriquez, her chronic pain specialist prescribed. Low suspicion for gastritis, GERD, peptic ulcer disease, cholecystitis, choledocholithiasis, cholangitis, pancreatitis, appendicitis, bowel obstruction , ileus, volvulus, nephrolithiasis, pyelonephritis, hepatitis, perforated viscus , diverticulitis, abdominal hernia, acute abdomen, mesenteric ischemia or other emergent conditions. This case was discussed with my supervising physician, Dr. Teague who agreed with the management and discharge plan. Follow up with primary care physician tomorrow. Instructed patient to return to the ED sooner for any worsening symptoms. Patient's questions were answered. Patient understood and agreed with discharge plan. Patient discharged stable. Departure Diagnosis: Primary Impression: Diarrhea Diarrhea type: unspecified type Qualified Code: R19.7 - Diarrhea, unspecified type Condition: Stable Patient Instructions: Treating Diarrhea, Self-Care for Vomiting and Diarrhea Referrals: COMMUNITY CLINICS YOU HAVE RECEIVED A MEDICAL SCREENING EXAM AND THE RESULTS INDICATE THAT YOU DO NOT HAVE A CONDITION THAT REQUIRES URGENT TREATMENT IN THE EMERGENCY DEPARTMENT. FURTHER EVALUATION AND TREATMENT OF YOUR CONDITION CAN WAIT UNTIL YOU ARE SEEN IN YOUR DOCTORS OFFICE WITHIN THE NEXT 1-2 DAYS. IT IS YOUR RESPONSIBILITY TO MAKE AN APPOINTMENT FOR FOLOW-UP CARE. IF YOU HAVE A PRIMARY DOCTOR --you should call your primary doctor and schedule an appointment IF YOU DO NOT HAVE A PRIMARY DOCTOR YOU CAN CALL OUR PHYSICIAN REFERRAL HOTLINE AT IF YOU CAN NOT AFFORD TO SEE A PHYSICIAN YOU CAN CHOSE FROM THE FOLLOWING [facility] CL[facility] [address] [facility] [address] [facility] [address] [facility] [address] [facility] [address] [facility]. [facility]. [address] [facility]. [facility] YOU HAVE RECEIVED A MEDICAL SCREENING EXAM AND THE RESULTS INDICATE THAT YOU DO NOT HAVE A CONDITION THAT REQUIRES URGENT TREATMENT IN THE EMERGENCY DEPARTMENT. FURTHER EVALUATION AND TREATMENT OF YOUR CONDITION CAN WAIT UNTIL YOU ARE SEEN IN YOUR DOCTORS OFFICE WITHIN THE NEXT 1-2 DAYS. IT IS YOUR RESPONSIBILITY TO MAKE AN APPOINTMENT FOR FOLOW-UP CARE. IF YOU HAVE A PRIMARY DOCTOR --you should call your primary doctor and schedule and appointment IF YOU DO NOT HAVE A PRIMARY DOCTOR YOU CAN CALL OUR PHYSICIAN REFERRAL HOTLINE AT . IF YOU CAN NOT AFFORD TO SEE A PHYSICIAN YOU CAN CHOSE FROM THE FOLLOWING [facility] INSTITUTIONS: [facility] [address] [place] [address] [facility] [address] [place] [address] [facility] [address] [place] [address] [facility] URGENT C[facility]/SPECIALTIES Additional Instructions: Follow up with your chronic pain specialist, Dr. Enriquez. Call your primary care doctor TOMORROW for an appointment during the next 1-2 days.See the doctor sooner or return here if your condition worsens before your appointment time - fever, persistent vomiting, worsening abdominal pain, bloody diarrhea, etc. CHINMAY PAYNE PA-C May 19, 2017 15:38 CHINMAY PAYNE PA-C May 19, 2017 15:38
== END 2017-05-19 16:09 | disposition home or self-care (01) ==
LOC: FTE 12:40
DX: R19.7 Diarrhea, unspecified (principal); R10.2 Pelvic and perineal pain
CPT/HCPCS: 76705; 80053; 81001; 83690; 85025; 93005; J2405; J7030; 36415; 81003; 96374; 96375

== ENCOUNTER 2017-05-28 07:07 | Emergency (ER) | payer MEDICARE, BC, MEDICAID ==
[~2017-05-28] VITALS: Ht 152.4 cm; Wt 52.0 kg
[2017-05-28 07:10] VITALS: Ht 152.4 cm; Wt 52.0 kg
[2017-05-28] MEDS ORDERED: IBUPROFEN 800 MG TAB PO ONE (08:30)
[2017-05-28 08:40] LABS: HEMATOCRIT 40.5 % (37.0-47.0); HEMOGLOBIN 13.6 g/dl (12.0-16.0); LYMPHOCYTES # 0.8 10^3/ul (0.8-2.9); LYMPHOCYTES % 9.2 % (15.0-51.0); MEAN CORPUSCULAR HEMOGLOBIN 29.1 pg (29.0-33.0); MEAN CORPUSCULAR HGB CONC 33.6 g/dl (32.0-37.0); MEAN CORPUSCULAR VOLUME 86.7 fl (82.0-101.0); MEAN PLATELET VOLUME 11.6 fl (7.4-10.4); MONOCYTE # 0.9 10^3/ul (0.3-0.9); MONOCYTES % 10.6 % (0.0-11.0); NEUTROPHIL # 7.1 10^3/ul (1.6-7.5); NEUTROPHILS % 79.9 % (39.0-77.0); PLATELET COUNT 202 10^3/UL (140-415); RED BLOOD COUNT 4.67 10^6/ul (4.20-5.40); RED CELL DISTRIBUTION WIDTH 12.5 % (11.5-14.5); WHITE BLOOD COUNT 8.9 10^3/ul (4.8-10.8)
[2017-05-28 08:58] LABS: ADD UMIC YES; UR ASCORBIC ACID NEGATIVE (NEGATIVE); UR BACTERIA FEW /HPF (NONE SEEN); UR BILIRUBIN (Dip) NEGATIVE (NEGATIVE); UR BLOOD (Dip) 3+ mg/dL (NEGATIVE); UR CLARITY CLOUDY (CLEAR); UR COLOR YELLOW (YELLOW); UR GLUCOSE (Dip) NEGATIVE (NEGATIVE); UR KETONES (Dip) NEGATIVE (NEGATIVE); UR LEUKOCYTE ESTERASE (Dip) 2+ Leu/ul (NEGATIVE); UR MUCUS FEW /HPF (NONE SEEN); UR NITRITE (Dip) NEGATIVE (NEGATIVE); UR RBC > 182 /HPF (0-5); UR SQUAMOUS EPITHELIAL CELL FEW /HPF (FEW); UR TOTAL PROTEIN (Dip) 2+ mg/dl (NEGATIVE); UR UROBILINOGEN (Dip) NEGATIVE (NEGATIVE); UR WBC CLUMPS MANY /HPF (NONE SEEN)
[2017-05-28 09:00] LABS: BILIRUBIN,INDIRECT 0.3 mg/dl (0-1.1); BILIRUBIN,TOTAL 0.3 mg/dl (0.2-1.3); CALCIUM 9.4 mg/dl (8.4-10.2); CREATININE 0.56 mg/dl (0.44-1.00); POTASSIUM 3.7 mmol/L (3.5-5.1)
[2017-05-28 09:01] LABS: ALBUMIN 4.3 g/dl (3.3-4.9); ALBUMIN/GLOBULIN RATIO 1.65; TOTAL PROTEIN 6.9 g/dl (6.1-8.1)
[2017-05-28] MEDS ORDERED: CEFTRIAXONE 1 GM/50 ML (PMX) 50 ML IVPB ONE (09:30)
[2017-05-28] MEDS ORDERED: SOD CHLORIDE 0.9% 1,000 ML IV ONE (09:30)
--- NOTE | 2017-05-28 10:36 | ERD ---
ER Documentation Chief Complaint Date/Time DATE: 05/28/17 TIME: 10:30 Chief Complaint back pain x 2 days , blood in urine today HPI This 51-year-old female who presents to the emergency department today complaining of right-sided back pain that started last night. Patient states that last week she had some fevers and chills and nausea. States that she thought it was withdrawal from stopping her Percocet and fentanyl that she been taking for multiple pain complaints. States she is currently taking Nucynta. States that she noticed blood in her urine today. States that she has irregular menstrual cycles and that her last menstrual period was 2 months ago. ROS All systems reviewed and are negative except as per history of present illness. Medications Home Meds Active Scripts Ibuprofen* (Motrin*) 600 Mg Tab, 600 MG PO Q6, #30 TAB Prov:PATSY QUIÑONES PA-C 05/28/17 Cephalexin* (Keflex*) 500 Mg Capsule, 500 MG PO QID for 10 Days, CAP Prov:PATSY QUIÑONES PA-C 05/28/17 Benzonatate* (Tessalon Perle*) 100 Mg Capsule, 100 MG PO Q8H Y for COUGH, #30 CAP Prov:DELMIS JOSEPH PA-C 02/17/17 Docusate Sodium* (Colace*) 100 Mg Capsule, 100 MG PO DAILY, #30 CAP Prov:PATSY QUIÑONES PA-C 12/26/16 Magnesium Citrate* (Magnesium Citrate*) 296 Ml Solution, 296 ML PO ONCE, #1 BOTTLE Prov:PATSY QUIÑONES PA-C 12/26/16 Polyethylene Glycol* (Miralax*) 17 Gm Powd.pack, 17 GM PO DAILY, #15 Prov:PATSY QUIÑONES PA-C 12/26/16 Methocarbamol* (Robaxin*) 750 Mg Tablet, 750 MG PO TID, #20 TAB Prov:FRANCESCA URIAS DO 12/19/16 Hydrocodone/Acetaminophen ([place] 10-325 Tablet) 1 Each Tablet, 1 TAB PO Q6H Y for PAIN, #20 TAB Prov:FRANCESCA URIAS DO 12/19/16 Ondansetron (Ondansetron Odt) 4 Mg Tab.rapdis, 4 MG PO Q6H Y for NAUSEA AND/OR VOMITING, #10 TAB Prov:FRANCESCA URIAS DO 12/19/16 Sulfamethoxazole-Trimethoprim* (Bactrim* DS) 800-160 Mg Tab, 1 TAB PO BID for 5 Days, TAB Prov:KATHERIN DE LUNA PA-C 10/24/16 Hydrocodone/Acetaminophen ([place] 5-325 Tablet) 1 Each Tablet, 1 TAB PO Q6H Y for PAIN, #7 TAB Prov:ZANDER POLANCO PA-C 09/26/16 Ciprofloxacin Hcl* (Ciprofloxacin Hcl*) 500 Mg Tablet, 500 MG PO BID for 10 Days , TAB Prov:ZANDER POLANCO PA-C 09/26/16 Phenazopyridine Hcl* (Pyridium*) 200 Mg Tab, 200 MG PO TID Y for URINARY PAIN, # 6 TAB Prov:KUSH VITALE MD 08/12/16 Cephalexin* (Keflex*) 500 Mg Capsule, 500 MG PO QID for 7 Days, CAP Prov:KUSH VITALE MD 08/12/16 Magnesium Citrate* (Citroma*) 300 Ml Soln, 150 ML PO BID, #1 BOTTLE Prov:CHANTELLE VELÁSQUEZ NP 06/22/16 Ondansetron Hcl* (Zofran* ODT) 4 mg -ODT Tab.disper, 4 MG PO Q8 Y for NAUSEA AND /OR VOMITING, #30 TAB Prov:ALIREZA SUTHERLAND NP 10/15/15 Hydrocodone Bit-Acetaminophen* ([place]*) 5-325 Mg Tab, 1 TAB PO Q6 Y for PAIN, # 20 TAB Prov:ALIREZA SUTHERLAND NP 10/15/15 Acetaminophen-Codeine* (Acetaminophen-Cod #3*) 300-30 Mg Tab, 1 TAB PO Q4H Y for PAIN, #20 TAB Prov:DESMOND GAYLE NP 04/18/15 Ondansetron Hcl* (Zofran* ODT) 4 mg -ODT Tab.disper, 4 MG PO Q6 Y for NAUSEA AND /OR VOMITING, #5 TAB Prov:MILTON GARCIA 04/11/15 Reported Medications Lactobacillus Acidophilus* (Lactinex*) 1 Tab Chew, 1 TAB PO DAILY, TAB 07/26/14 Zolpidem Tartrate* (Zolpidem Tartrate*) 10 Mg Tablet, 10 MG PO HS for INSOMNIA, TAB 07/26/14 Pantoprazole* (Protonix*) 40 Mg Tablet.dr, 40 MG PO BID, TAB 07/26/14 Hydrocodone Bit-Acetaminophen* ([place]*) 10-325 Tablet, 1 TAB PO Q6 Y for PAIN, TAB 07/09/14 Allergies Allergies: Coded Allergies: clindamycin (Verified Allergy, Intermediate, 05/28/17) PMhx/Soc History of Surgery: Yes (right hip, right shoulder, coccyx) Anesthesia Reaction: No Hx Neurological Disorder: No Hx Respiratory Disorders: No Hx Cardiac Disorders: Yes (Hyperlipidemia ) Hx Psychiatric Problems: No Hx Miscellaneous Medical Probl: Yes (uti) Hx Alcohol Use: No Hx Substance Use: No Hx Tobacco Use: No Smoking Status: Never smoker Physical Exam Vitals Vital Signs Date Time Temp Pulse Resp B/P Pulse Ox O2 Delivery O2 Flow Rate FiO2 05/28/17 07:10 98.2 104 18 118/75 100 Physical Exam Const: No acute distress Head: Atraumatic Eyes: Normal Conjunctiva ENT: Normal External Ears, Nose and Mouth. Neck: Full range of motion..~ No meningismus. Resp: Clear to auscultation bilaterally Cardio: Regular rate and rhythm, no murmurs Abd: Soft, mild pelvic tenderness, non distended. Normal bowel sounds. No tenderness McBurney Skin: No petechiae or rashes Back: No midline tenderness. Right-sided flank tenderness. No CVA tenderness. Ext: No cyanosis, or edema Neur: Awake and alert Psych: Normal Mood and Affect Result Diagram: 05/28/17 0802 05/28/17 08 Results 24 hrs Laboratory Tests Test 05/28/17 07:53 05/28/17 08:02 Urine Color YELLOW Urine Clarity CLOUDY Urine pH 6.0 Urine Specific Ruffin 1.010 Urine Ketones NEGATIVEmg/dL Urine Nitrite NEGATIVEmg/dL Urine Bilirubin NEGATIVEmg/dL Urine Urobilinogen NEGATIVEmg/dL Urine Leukocyte Esterase 2+Lev/ul Urine Microscopic RBC > 182/HPF Urine Microscopic WBC > 182/HPF Urine Squamous Epithelial Cells FEW/HPF Urine Bacteria FEW/HPF Urine Mucus FEW/HPF Urine Hemoglobin 3+mg/dL Urine Glucose NEGATIVEmg/dL Urine Total Protein 2+mg/dl White Blood Count 8.910^3/ul Red Blood Count 4.6710^6/ul Hemoglobin 13.6g/dl Hematocrit 40.5% Mean Corpuscular Volume 86.7fl Mean Corpuscular Hemoglobin 29.1pg Mean Corpuscular Hemoglobin Concent 33.6g/dl Red Cell Distribution Width 12.5% Platelet Count 01363^3/UL Mean Platelet Volume 11.6fl Neutrophils % 79.9% Lymphocytes % 9.2% Monocytes % 10.6% Eosinophils % 0.0% Basophils % 0.0% Nucleated Red Blood Cells % 0.0/100WBC Neutrophils # 7.110^3/ul Lymphocytes # 0.810^3/ul Monocytes # 0.910^3/ul Eosinophils # 0.010^3/ul Basophils # 0.010^3/ul Nucleated Red Blood Cells # 0.010^3/ul Sodium Level 145mmol/L Potassium Level 3.7mmol/L Chloride Level 103mmol/L Carbon Dioxide Level 27mmol/L Anion Gap 19 Blood Urea Nitrogen 5mg/dl Creatinine 0.56mg/dl Glucose Level 98mg/dl Calcium Level 9.4mg/dl Total Bilirubin 0.3mg/dl Direct Bilirubin 0.00mg/dl Indirect Bilirubin 0.3mg/dl Aspartate Amino Transf (AST/SGOT) 20IU/L Alanine Aminotransferase (ALT/SGPT) 21IU/L Alkaline Phosphatase 70IU/L Total Protein 6.9g/dl Albumin 4.3g/dl Globulin 2.60g/dl Albumin/Globulin Ratio 1.65 Lipase 486U/L Current Medications Medications (Trade) Dose Ordered Sig/Rahul Route PRN Reason Start Time Stop Time Status Last Admin Dose Admin Ibuprofen 800 mg 800 mg ONCE ONCE PO 05/28/17 08:30 05/28/17 08:31 DC 05/28/17 08:11 Sodium Chloride 1,000 ml @ 1,000 mls/hr Q1H ONCE IV 05/28/17 09:30 05/28/17 10:29 DC 05/28/17 09:21 Ceftriaxone Sodium (Rocephin) 50 ml @ 100 mls/hr ONCE ONCE IVPB 05/28/17 09:30 05/28/17 09:59 DC 05/28/17 09:20 Procedures/MDM This a 51-year-old female who presents to the emergency department today complaining of right-sided flank pain started last night and blood in her urine that started today. Upon review of patient's medical records patient has been to the emergency department multiple times. Patient is an employee here in the hospital. Patient has had multiple visits for pyelonephritis in the past. Did obtain laboratory workup as well as a UA Laboratory workup shows no elevated white blood cell count. She is not anemic. Platelets are within normal limits. Sodium is very mildly elevated otherwise electrolytes are within normal limits. Glucose within normal limits. Liver enzymes are within normal limits. Lipase is elevated at 486. UA shows 2+ leukocyte esterase negative nitrites. Greater than 182 white blood cells and greater than 182 red blood cells. test is negative. Patient symptoms at this time most consistent with urinary tract infection and likely pyelonephritis. I did consider nephrolithiasis and septic stone however patient is afebrile and otherwise well-appearing. Do not feel that she requires admission at this time. Patient has had multiple CT scans in the past and I do not feel that this is beneficial for the patient at this time. She was given IV fluids and Rocephin here in the emergency department. Patient was requesting to go home. Patient was given a prescription for Keflex and Motrin for home. I explained her that she has had multiple infections in her kidney in the past and I have explained to her that she does need to follow-up with her urology specialist. Patient was given a list of referrals. At this time the patient is stable for discharge and outpatient management. Patient should follow up with their PCP in the next 1-2 days. They may return to the emergency department sooner for any persistent or worsening of symptoms. Patient understood and agreed with the plan. Discussed the patient with Dr. Valencia and he is in agreement with the plan. Departure Diagnosis: Primary Impression: Pyelonephritis Condition: PATSY Astorga PA-C May 28, 2017 10:36
[2017-05-28] MEDS ORDERED: CEPH-443 PO (10:38)
[2017-05-28] MEDS ORDERED: IBUP-1542 PO (10:38)
[2017-05-28 10:50] VITALS: BP 112/79; PULSE 71; RESP 18; TEMP 98
== END 2017-05-28 10:51 | disposition home or self-care (01) ==
LOC: FTE 07:07
DX: N12 Tubulo-interstitial nephritis, not specified as acute or chronic (principal)
CPT/HCPCS: 80053; 81001; 83690; 85025; 96365; 99284; J0696; J7030

== ENCOUNTER 2017-10-08 17:59 | Emergency (ER) | payer BC, MEDICAID, MEDICARE ==
[~2017-10-08] VITALS: Ht 152.4 cm; Wt 56.9 kg
[~2017-10-08 17:59] MED LIST changes: +IBUP-1542 PO
[2017-10-08 18:02] VITALS: Ht 152.4 cm; Wt 56.9 kg
== END 2017-10-08 19:49 | disposition left against medical advice (07) ==
LOC: E/R 17:59
DX: Z53.21 Procedure and treatment not carried out due to patient leaving prior to being seen by health care provider (principal)

== ENCOUNTER 2018-03-06 22:29 | Emergency (ER) | END 2018-03-07 01:50 | disposition home or self-care (01) ==

== ENCOUNTER 2018-03-28 23:41 | Emergency (ER) | END 2018-03-29 03:38 | disposition home or self-care (01) ==

== ENCOUNTER 2018-08-05 11:12 | Emergency (ER) | END 2018-08-05 14:08 | disposition home or self-care (01) ==

== ENCOUNTER 2019-01-19 17:27 | Emergency (ER) | payer BC, MEDICARE ==
[~2019-01-19] VITALS: Ht 152.4 cm; Wt 63.0 kg
[~2019-01-19 17:27] MED LIST changes: +ACET500C5 PO; +BENZ-6 PO; -BENZ100C70 PO; +CYCL5TAB PO; +FER325 PO; +HYDR-3980 PO; +HYDR-4011 PO; -HYDR-902 PO; -HYDR-906 PO; +NAPR-985 PO
[2019-01-19 17:48] VITALS: Ht 152.4 cm; Wt 63.0 kg
[2019-01-19] MEDS ORDERED: IBUPROFEN 600 MG TAB PO ONE (21:00)
[2019-01-19] MEDS ORDERED: IBUP-1542 PO (22:15)
--- NOTE | 2019-01-19 22:15 | ERD ---
ER Documentation Chief Complaint Chief Complaint S/P RT ANKLE FRACTURE--NEW FALL WITH REPORTED ANKLE TWISTING HPI 53-year old female presents to the emergency department complaining of right ankle pain. Patient states that approximately a week ago she had a mechanical twist and fall and was told that she had an operative ankle fracture. She was immobilized but has not been able to obtain outpatient follow-up with orthopedics. She states that today she again twisted and fell. Patient reports right wrist pain, worsening pain in the ankle as well as left foot pain. ROS All systems reviewed and are negative except as per history of present illness. Medications Home Meds Active Scripts Docusate Sodium* (Colace*) 100 Mg Capsule, 100 MG PO BID, #30 CAP Prov:JANAK DAWKINS PA-C 08/05/18 Ferrous Sulfate* (Ferrous Sulfate*) 325 Mg Tabec, 325 MG PO BID, #60 TAB Prov:JANAK DAWKINS PA-C 08/05/18 Acetaminophen* (Tylophen*) 500 Mg Capsule, 1 CAP PO Q6H PRN for PAIN AND OR ELEVATED TEMP, #20 CAP Prov:JANAK DAWKINS PA-C 08/05/18 Naproxen* (Naprosyn*) 500 Mg Tablet, 500 MG PO BID PRN for PAIN AND/OR INFLAMMATION, #60 TAB Prov:RAFI CONNOR MD 03/29/18 Cyclobenzaprine Hcl* (Cyclobenzaprine Hcl*) 5 Mg Tablet, 5 MG PO Q8H PRN for MUSCLE SPASMS, #15 TAB Prov:YORDY ALVARADO MD 03/07/18 Ibuprofen* (Motrin*) 600 Mg Tab, 600 MG PO Q6H PRN for PAIN, #20 TAB Prov:YORDY ALVARADO MD 03/06/18 Ibuprofen* (Motrin*) 600 Mg Tab, 600 MG PO Q6, #30 TAB Prov:ALBER FLOWERS 07/22/17 Hydrocodone/Acetaminophen ([place] 5-325 Tablet) 1 Each Tablet, 1 TAB PO Q6H PRN for PAIN, #7 TAB Prov:ALBER FLOWERS 07/22/17 Ibuprofen* (Motrin*) 600 Mg Tab, 600 MG PO Q6, #30 TAB Prov:PATSY QUIÑONES PA-C 05/28/17 Cephalexin* (Keflex*) 500 Mg Capsule, 500 MG PO QID for 10 Days, CAP Prov:PATSY QUIÑONESC 05/28/17 Benzonatate* (Tessalon Perle*) 100 Mg Capsule, 100 MG PO Q8H PRN for COUGH, #30 CAP Prov:DELMIS JOSEPHC 02/17/17 Docusate Sodium* (Colace*) 100 Mg Capsule, 100 MG PO DAILY, #30 CAP Prov:PATSY QUIÑONES-C 12/26/16 Magnesium Citrate* (Magnesium Citrate*) 296 Ml Solution, 296 ML PO ONCE, #1 BOTTLE Prov:PATSY QUIÑONESC 12/26/16 Polyethylene Glycol* (Miralax*) 17 Gm Powd.pack, 17 GM PO DAILY, #15 Prov:PATSY QUIÑONES-C 12/26/16 Methocarbamol* (Robaxin*) 750 Mg Tablet, 750 MG PO TID, #20 TAB Prov:FRANCESCA URIAS DO 12/19/16 Hydrocodone/Acetaminophen ([place] 10-325 Tablet) 1 Each Tablet, 1 TAB PO Q6H PRN for PAIN, #20 TAB Prov:FRANCESCA URIAS DO 12/19/16 Ondansetron (Ondansetron Odt) 4 Mg Tab.rapdis, 4 MG PO Q6H PRN for NAUSEA AND/OR VOMITING, #10 TAB Prov:FRANCESCA URIAS DO 12/19/16 Sulfamethoxazole-Trimethoprim* (Bactrim* DS) 800-160 Mg Tab, 1 TAB PO BID for 5 Days, TAB Prov:KATHERIN DE LUNAC 10/24/16 Hydrocodone/Acetaminophen ([place] 5-325 Tablet) 1 Each Tablet, 1 TAB PO Q6H PRN for PAIN, #7 TAB Prov:ZANDER POLANCOC 09/26/16 Ciprofloxacin Hcl* (Ciprofloxacin Hcl*) 500 Mg Tablet, 500 MG PO BID for 10 Days, TAB Prov:ZANDER POLANCOC 09/26/16 Phenazopyridine Hcl* (Pyridium*) 200 Mg Tab, 200 MG PO TID PRN for URINARY PAIN, #6 TAB Prov:OSTICK,KUSH MD 08/12/16 Cephalexin* (Keflex*) 500 Mg Capsule, 500 MG PO QID for 7 Days, CAP Prov:KUSH VITALE MD 08/12/16 Magnesium Citrate* (Citroma*) 300 Ml Soln, 150 ML PO BID, #1 BOTTLE Prov:CHRISTENCHANTELLE Romana HANDBAG OPERATOR 06/22/16 Ondansetron Hcl* (Zofran* ODT) 4 mg -ODT Tab.disper, 4 MG PO Q8 PRN for NAUSEA AND/OR VOMITING, #30 TAB Prov:ALIREZA SUTHERLAND HANDBAG OPERATOR 10/15/15 Hydrocodone Bit-Acetaminophen* ([place]*) 5-325 Mg Tab, 1 TAB PO Q6 PRN for PAIN, #20 TAB Prov:ALIREZA SUTHERLAND HANDBAG OPERATOR 10/15/15 Acetaminophen-Codeine* (Acetaminophen-Cod #3*) 300-30 Mg Tab, 1 TAB PO Q4H PRN for PAIN, #20 TAB Prov:DESMOND GAYLE NP 04/18/15 Ondansetron Hcl* (Zofran* ODT) 4 mg -ODT Tab.disper, 4 MG PO Q6 PRN for NAUSEA AND/OR VOMITING, #5 TAB Prov:MILTON GARCIA 04/11/15 Reported Medications Lactobacillus Acidophilus* (Lactinex*) 1 Tab Chew, 1 TAB PO DAILY, TAB 07/26/14 Zolpidem Tartrate* (Zolpidem Tartrate*) 10 Mg Tablet, 10 MG PO HS for INSOMNIA, TAB 07/26/14 Pantoprazole* (Protonix*) 40 Mg Tablet.dr, 40 MG PO BID, TAB 07/26/14 Hydrocodone Bit-Acetaminophen* ([place]*) 10-325 Tablet, 1 TAB PO Q6 PRN for PAIN, TAB 07/09/14 Allergies Allergies: Coded Allergies: clindamycin (Verified Allergy, Intermediate, 08/05/18) PMhx/Soc History of Surgery: Yes (right hip, right shoulder, coccyx) Anesthesia Reaction: No Hx Neurological Disorder: No Hx Respiratory Disorders: No Hx Cardiac Disorders: Yes (Hyperlipidemia ) Hx Psychiatric Problems: No Hx Miscellaneous Medical Probl: Yes (uti) Hx Alcohol Use: No Hx Substance Use: No Hx Tobacco Use: No Smoking Status: Never smoker Physical Exam Vitals Vital Signs Date Temp Pulse Resp B/P (MAP) Pulse Ox O2 O2 Flow FiO2 Time Delivery Rate 01/19/19 99.1 96 16 126/80 99 17:48 (95) Physical Exam General: Well developed, well nourished in no acute distress HEENT: Scalp atraumatic with no laceration or evidence of skull fracture; no signs of basilar skull fracture. Face symmetric, stable and atraumatic Neck: Full range of motion without discomfort or neurologic symptoms, no midline cervical spine tenderness, step-off, or evidence of significant trauma CV: Regular rate, rhythm, no murmurs appreciated Lungs: Clear to auscultation bilaterally with no chest wall trauma appreciated, chest wall stable with no crepitus Abdomen: Soft, atraumatic and non-tender in all 4 quadrants Extremities: Right upper extremity has mild tenderness about the wrist with full range of motion and no scaphoid tenderness. The rest of the right upper extremity appears to be normal. The left upper extremity appears to be normal. The right lower extremity has the ankle immobilized in a short leg posterior molded splint. Patient is neurovascularly intact. The left lower extremity has ecchymosis about the fourth and fifth toe with otherwise normal appearance of the foot. The remainder of the extremity appears to be normal. Patient is neurovascular intact. Back: No thoracic or lumbar midline tenderness, no step-off or evidence of significant trauma Neurologic: Awake, alert and oriented, pupils equal, round and reactive to light, face symmetric, tongue midline, moving all extremities with equal and normal strength, sensory exam grossly non-focal Results 24 hrs Current Medications Medications Dose Sig/Rahul Start Time Status Last (Trade) Ordered Route PRN Stop Time Admin Dose Reason Admin Ibuprofen 600 mg ONCE ONCE 01/19/19 DC 01/19/19 (Motrin) PO 21:00 20:56 01/19/19 21:01 Procedures/MDM Patient was taken to a room, seen and examined Radiographic studies were appreciated Medical decision m[age]-year-old presents to the emergency department with nonspecific injuries to her wrist foot and ankle. Her ankle is already been immobilized and she arrived in a perfectly appropriate posterior molded splint. She has been recommended outpatient follow-up with orthopedics and I have provided an orthopedic referral. She is to remain nonweightbearing status. Pain is otherwise controlled she is neurovascularly intact Departure Diagnosis: Primary Impression: Ankle fracture Additional Impressions: Wrist sprain Toe contusion Condition: Fair ALBER FLOWERS Jan 19, 2019 22:15
[2019-01-19 22:33] VITALS: BP 131/81; PULSE 59; RESP 16
== END 2019-01-19 22:56 | disposition home or self-care (01) ==
LOC: FTE 17:27
DX: S82.891A Other fracture of right lower leg, initial encounter for closed fracture (principal); S90.122A Contusion of left lesser toe(s) without damage to nail, initial encounter; S63.501A Unspecified sprain of right wrist, initial encounter; W18.30XA Fall on same level, unspecified, initial encounter; Y92.9 Unspecified place or not applicable